=== PATIENT | female | born 1995 | race American Indian/Alaskan Native ===

== ENCOUNTER 2016-10-09 21:46 | Inpatient (IN) | payer MEDICAID ==
[2016-10-09] MEDS ORDERED: PITOCin/NS 20 UNIT/1000ML DRIP 1,000 ML IV ONE (21:56)
[2016-10-09] MEDS ORDERED: XYLOCAINE 2% INFILTRATI ONE (22:08)
[2016-10-09] MEDS ORDERED: BRETHINE SUB-Q PRN (22:08)
[2016-10-09] MEDS ORDERED: BRETHINE IVP PRN (22:08)
[2016-10-09] MEDS ORDERED: NARCAN 0.4 MG/1 ML IV PRN (22:08)
[2016-10-09] MEDS ORDERED: ePHEDrine SULFATE IV PRN (22:08)
[2016-10-09] MEDS ORDERED: ZOFRAN IV PRN ×2 (22:08→23:14)
[2016-10-09] MEDS ORDERED: STADOL IV PRN (22:08)
[2016-10-09] MEDS ORDERED: SUBLIMAZE IV PRN (22:08)
[2016-10-09] MEDS ORDERED: MINERAL OIL PO PRN (22:08)
--- NOTE | 2016-10-09 22:17 | History and Physical Report ---
History of Present Illness Date of examination: 10/09/16 Date of admission: 10/09/16 21:47 Chief complaint: contractions History of present illness: Pt is a 20 year old -[place] female at 37w6d who presents with contractions since 8 am. She was noted to be 8-9 cm upon presentation, then experienced rupture of membranes in the triage unit. She denies vaginal bleeding. She has had care at [place] which per pt report has been uncomplicated. She is GBS unknown. Past History Past Medical History: no pertinent history Past Surgical History: tonsillectomy Family/Genetic History: none Social history: no significant social history - Obstetrical History Expected Date of Delivery: 10/24/16 Actual Gestation: 37 Week(s) 6 Day(s) : 5 Para: 3 Hx # Term Pregnancies: 3 Number of Pregnancies: 0 Spontaneous Abortions: 0 Induced : 1 Number of Living Children: 3 Medications and Allergies Allergies Allergy/AdvReac Type Severity Reaction Status Date / Time No Known Allergies Allergy Verified 10/09/16 22:04 Home Medications Medication Instructions Recorded Confirmed Last Taken Type No Known Home Medications [No 10/09/16 10/09/16 Unknown History Reported Home Medications] Active Meds: Active Medications Butorphanol Tartrate (Stadol) 2 mg IV Q2H PRN PRN Reason: Pain , Severe (7-10) Ephedrine Sulfate (Ephedrine Sulfate) 10 mg IV Q2M PRN PRN Reason: Hypotension Stop: 10/09/16 22:13 Fentanyl (Sublimaze) 100 mcg IV Q2H PRN PRN Reason: Labor Pain Lactated Ringer's (Lactated Ringers) 1,000 mls @ 125 mls/hr IV DIRECT KHURRAM Oxytocin/Sodium Chloride (Pitocin/Ns 20 Unit/1000ml Drip) 1,000 mls @ 125 mls/ hr IV DIRECT KHURRAM Lidocaine (Xylocaine 2%) 20 ml INFILTRATI ONCE ONE Stop: 10/09/16 22:09 Mineral Oil (Mineral Oil) 30 ml PO QHS PRN PRN Reason: Constipation Naloxone HCl (Narcan 0.4 Mg/1 Ml) 0.1 mg IV Q2MIN PRN PRN Reason: Res Rate </= 8 or 02 SAT < 92% Ondansetron HCl (Zofran) 4 mg IV Q8H PRN PRN Reason: Nausea And Vomiting Terbutaline Sulfate (Brethine) 0.25 mg SUB-Q ONCE PRN PRN Reason: Hyperstimulation/Hypertonicity Stop: 10/09/16 22:09 Terbutaline Sulfate (Brethine) 0.25 mg IVP ONCE PRN PRN Reason: Hyperstimulation/Hypertonicity Stop: 10/09/16 22:09 Review of Systems All systems: negative - Vital Signs Vital signs: Vital Signs Temp 97.8 F 10/09/16 21:50 Temp Pulse Resp BP Pulse Ox 97.8 F 94 H 116/69 10/09/16 21:50 10/09/16 22:06 10/09/16 22:06 - Physical Exam Breasts: Positive: deferred Cardiovascular: Regular rate Lungs: Positive: Clear to auscultation Abdomen: Positive: soft Uterus: Positive: enlarged (gravid ) Extremities: Positive: normal - Obstetrical FHR: category 2 Uterine Contraction Monitor Mode: External Uterine Contraction Pattern: Regular Uterine Tone Measurement Phase: Resting Uterine Contraction Intensity: Strong/Firm Results All other labs normal. Assessment and Plan A: IUP at 37w6d Stage 2 labor [facility] care at [place]BS [place] P: Admit to labor and delivery. Routine intrapartum care. Anticipate .
--- NOTE | 2016-10-09 22:27 | Procedure Note ---
OB Delivery Note - Delivery Date of Delivery: 10/09/16 Surgeon: TAYA ORTEZ Estimated blood loss: 300cc - Vaginal Delivery presentation: vertex Delivery position: OA Intrapartum events: precipitous labor- <3hr Delivery induction: none Delivery monitor: external FHT, external uterine Route of delivery: Delivery placenta: spontaneous Delivery cord: nuchal cord (loose, delivered through ) Episiotomy: none Delivery laceration: none Delivery comments: While on-call Dr en-route, pt delivered a viable female via under no anesthesia. Delivery attended by Taya Ortez, Cushion Assembler on the labor and the delivery unit. Head delivered, nuchal cord delivered through, followed quickly by body. Cord clamped and cut and bulb suctioned. Placenta delivered spontaneously. No lacerations noted. EBL 300mL. Procedure complete when slot operations manager Dr arrived. - A at 1 minute: 8 at 5 minutes: 9 Gender: Female (2548g (5lb 10 oz))
[2016-10-09 22:41] LABS: Hematocrit 28.3 % (30.3-42.9); Hemoglobin 9.2 gm/dl (10.1-14.3); Mean Corpuscular HGB Conc 33 % (30-34); Mean Corpuscular Volume 76 fl (79-97); Platelet Count 161 K/mm3 (140-440); Red Blood Count 3.74 M/mm3 (3.65-5.03); Red Cell Distribution Width 17.3 % (13.2-15.2); White Blood Count 9.1 K/mm3 (4.5-11.0)
[2016-10-09 22:42] LABS: Mean Corpuscular Hemoglobin 25 pg (28-32)
[2016-10-09] MEDS ORDERED: PITOCin/NS 20 UNIT/1000ML DRIP 1,000 ML IV SCH ×2 (23:00→23:14)
[2016-10-09] MEDS ORDERED: LACTATED RINGERS 1,000 ML IV SCH (23:00)
[2016-10-09 23:01] LABS: HIV-1 Antigen p24 Non React (Non React); HIVR-1/2 Ab Non React (Non React)
[2016-10-09] MEDS ORDERED: BENADRYL PO PRN (23:14)
[2016-10-09] MEDS ORDERED: MILK OF MAGNESIA PO PRN (23:14)
[2016-10-09] MEDS ORDERED: PHENERGAN PR PRN (23:14)
[2016-10-09] MEDS ORDERED: TUCKS PAD TP PRN (23:14)
[2016-10-09] MEDS ORDERED: SODIUM CHLORIDE FLUSH SYRINGE 10 ML IV NR (23:14)
[2016-10-09] MEDS ORDERED: DERMOPLAST TP PRN (23:14)
[2016-10-09] MEDS ORDERED: DULCOLAX PR PRN (23:14)
[2016-10-09] MEDS ORDERED: PHENERGAN PO PRN (23:14)
[2016-10-09] MEDS ORDERED: TYLENOL PO PRN (23:14)
[2016-10-09] MEDS ORDERED: LANSINOH TP PRN (23:14)
[2016-10-09] MEDS: NORCO 5/325 PO PRN (23:51)
[2016-10-10] MEDS ORDERED: MOTRIN PO SCH
[2016-10-10] MEDS ORDERED: M-M-R II VACCINE SUB-Q ONE (06:00)
[2016-10-10] MEDS ORDERED: BOOSTRIX IM ONE (06:00)
--- NOTE | 2016-10-10 09:03 | Progress Note ---
Assessment and Plan A: PPD#1 s/p at term, care at [place], no labs available currently P: Routine care. Attempt to obtain records from [facility]. If not received by noon, add to H and H. Subjective - Subjective Date of service: 10/10/16 Principal diagnosis: s/p at term Interval history: No issues. Patient reports: appetite normal, voiding normally, pain well controlled, ambulating normally, no nauseated Objective - Vital Signs Latest vital signs: Vital Signs Temp Pulse Pulse Resp BP BP 10/10/16 03:50 98.1 F 88 18 116/53 10/09/16 23:25 98.4 F 73 18 131/66 10/09/16 22:51 75 117/72 10/09/16 22:36 80 118/72 10/09/16 22:21 82 114/69 10/09/16 22:06 94 H 116/69 10/09/16 21:51 90 123/75 10/09/16 21:50 97.8 F Intake and Output 10/09/16 10/10/16 10/10/16 22:59 06:59 14:59 Intake Total 1115 Output Total 200 Balance 915 Intake: IV 875 PITOCin/NS 20 UNIT/1000ML 500 DRIP 1,000 ML @ 125 mls/ hr IV DIRECT KHURRAM Rx#: [id number] Left Forearm 375 Intake, Free Water 240 Output: Urine 200 Void 200 Other: Total, Output Amount 200 # Voids Void 1 Weight 55.792 kg Estimated Blood Loss 300 - Exam Breasts: Present: deferred Cardiovascular: Present: Regular rate Lungs: Present: Clear to auscultation Abdomen: Present: soft, normal bowel sounds Uterus: Present: firm, fundal height at umbilicus Extremities: Present: normal - Labs Labs: Abnormal lab results 10/09/16 Range/Units 22:28 Hgb 9.2 L (10.1-14.3) gm/dl Hct 28.3 L (30.3-42.9) % MCV 76 L (79-97) fl MCH 25 L (28-32) pg RDW 17.3 H (13.2-15.2) %
[2016-10-10] MEDS: PRENATAL VITAMIN PO SCH (10:35)
[2016-10-10] MEDS: FEOSOL PO SCH (10:35)
[2016-10-10 12:59] LABS: Hematocrit 26.6 % (30.3-42.9); Hemoglobin 8.7 gm/dl (10.1-14.3)
[2016-10-11] MEDS: PRENATAL VITAMIN PO SCH (10:25)
[2016-10-11] MEDS: FEOSOL PO SCH (10:25)
--- NOTE | 2016-10-11 11:28 | Progress Note ---
Assessment and Plan A: PPD#2 s/p ; Asymptomatic anemia P: Discharge today with follow up in 4 wks. Subjective - Subjective Date of service: 10/11/16 Principal diagnosis: s/p at term Interval history: No issues overnight Patient reports: appetite normal, voiding normally, pain well controlled, ambulating normally, no nauseated : doing well, bottle feeding Objective - Vital Signs Latest vital signs: Vital Signs Temp Pulse Resp BP 10/11/16 08:21 98.1 F 88 20 100/56 10/11/16 00:35 98.2 F 81 20 109/57 10/10/16 16:18 98.6 F 86 20 100/50 Intake and Output 10/10/16 10/11/16 10/11/16 22:59 06:59 14:59 Intake Total 120 595 120 Balance 120 595 120 Intake: Oral 120 235 120 Intake, Free Water 360 Other: Total, Intake Amount 120 235 120 Voiding Method Toilet # Voids Void 1 2 1 - Exam Breasts: Present: deferred Cardiovascular: Present: Regular rate Lungs: Present: Clear to auscultation Abdomen: Present: soft, normal bowel sounds Uterus: Present: fundal height below umbilicus Extremities: Present: normal - Labs Labs: Abnormal lab results 10/10/16 Range/Units 12:19 Hgb 8.7 L (10.1-14.3) gm/dl Hct 26.6 L (30.3-42.9) %
--- NOTE | 2016-10-11 11:33 | Discharge Summary ---
Providers - Providers Date of Admission: 10/09/16 21:47 Date of discharge: 10/11/16 Attending physician: KAYAL SANTIAGO 10/09/16 23:14 Consult to New Car Salesperson [CONS] Routine Reason For Exam: assistance with , SNS Primary care physician: KAYLA SANTIAGO Hospitalization Reason for admission: active labor Delivery: Procedure details: Please see delivery note. Episiotomy: none Laceration: none Other procedures: none complications: none Discharge diagnosis: IUP at term delivered baby: female Hospital course: Pt underwent which she tolerated well. She met discharge criteria on PPD#2. Condition at discharge: Stable Disposition: DISCHARGED TO HOME OR SELFCARE - Discharge Diagnoses (1) Term of female Status: Acute (2) Anemia affecting Status: Acute Plan - Discharge Medications Prescriptions: Ferrous Sulfate [Feosol 325 MG tab] 325 mg PO BID #60 tablet Ibuprofen [Motrin] 800 mg PO Q8HR PRN #30 tablet PRN Reason: Pain Vit-Fe Fumar-FA [ Vitamin] 1 tab PO QDAY #30 tablet oxyCODONE /ACETAMINOPHEN [Percocet 5/325] 1 tab PO Q6HR PRN #20 tablet PRN Reason: Pain - Provider Discharge Summary Activity: no sex for 6 weeks, no heavy lifting 4 weeks, no strenuous exercise Diet: routine Instructions: routine Additional instructions: [] Smoking cessation referral if applicable(refer to patient education folder for contact #) [] Refer to [facility] Booklet Call your doctor immediately for: * Fever > 100.5 * Heavy vaginal bleeding ( >1 pad per hour) * Severe persistent headache * Shortness of breath * Reddened, hot, painful area to leg or breast * Drainage or odor from incision. * Keep incision clean and dry at all times and follow doctor's instructions regarding bathing/showering - Follow up plan Follow up: KAYLA SANTIAGO MD [Primary Care Provider] - 11/06/16 ( exam )
[2016-10-12] MEDS: NORCO 5/325 PO PRN (08:35)
[2016-10-12 09:37] VITALS: BP 114/62
== END 2016-10-12 10:50 | disposition home or self-care (01) | DRG 775 ==
LOC: TRG 21:46 → LD 21:47 → OB 23:12
PROVIDERS: ADMIT Obstetrics & Gynecology; ATTEND Obstetrics & Gynecology
PROC: 10E0XZZ Delivery of Products of Conception, External Approach (ICD-10-PCS; principal; 2016-10-09)
DX: O42.02 Full-term premature rupture of membranes, onset of labor within 24 hours of rupture (principal); O99.02 Anemia complicating childbirth; Z3A.37 37 weeks gestation of pregnancy; Z37.0 Single live birth; D64.9 Anemia, unspecified; Z98.890 Other specified postprocedural states; O69.81X0 Labor and delivery complicated by cord around neck, without compression, not applicable or unspecified; O62.3 Precipitate labor
CPT/HCPCS: 36415; 85014; 85018; 85027; 86850; 86900; 86901; 87806; 90471; 90715; J2590